=== PATIENT | male | born 1945 | race Caucasian/White ===

== ENCOUNTER 2016-08-31 15:08 | Emergency (ER) | payer MEDICARE, BC ==
[2013-02-24 21:18] VITALS: BP 124/69
== END 2016-08-31 17:07 | disposition left against medical advice (07) ==
LOC: JP.ED 15:08
DX: Z53.21 Procedure and treatment not carried out due to patient leaving prior to being seen by health care provider (principal)

== ENCOUNTER 2020-07-03 09:40 | Day surgery (SDC) | payer BC, MEDICARE ==
[2020-07-03] MEDS ORDERED: Midazolam 1 MG/ML 2 ML SDV ONE (10:21)
[2020-07-03] MEDS ORDERED: fentaNYL 100 MCG/2 ML SDV ONE (10:21)
[2020-07-03] MEDS ORDERED: Propofol 200 MG/20 ML SDV ONE (10:21)
[2020-07-03] MEDS: Sodium Chloride 0.9% 1,000 ML IV SCH (10:21)
[2020-07-03 10:42] LABS: CORONAVIRUS COVID-19 NAA NEGATIVE (NEGATIVE)
[2020-07-03 11:57] VITALS: BP 112/70; PULSE 80
--- NOTE | 2020-07-03 12:05 | OR ---
DATE OF PROCEDURE: 07/03/2020 SURGEON: Greyson Clement MD PROCEDURE: 1. EGD. 2. Removal of foreign material consistent with food. COMPLICATIONS: None. PEDIATRIC SPORTS MEDICINE SPECIALIST: None. ANESTHESIA: MAC. PREOPERATIVE DIAGNOSIS: Dysphagia. POSTOPERATIVE DIAGNOSIS: Dysphagia. RISKS: Risks, benefits, alternatives, and limitations including, but not limited to, infection, bleeding, and injury to abdominal structures such as perforation were explained to the patient and he wished to proceed. PROCEDURE IN DETAIL: The patient was placed in the left lateral decubitus position. The EGD scope was introduced and advanced to the distal aspect of the esophagus. Food material was noted. This was able to be moved into the stomach. After this, there was no mass effect. No definitive mucosal lesion. The area appeared to have a white plaque-like appearance to it. This was biopsied along with all 4 quadrants for a total of approximately 12 to 15 biopsy. The remainder of the esophagus was inspected without abnormality. The stomach was also inspected, no abnormalities were noted. Retained food was noted. The duodenum was inspected without ulceration or abnormality. The scope was then removed. The patient tolerated the procedure well. Greyson Clement MD /[id number]
== END 2020-07-03 12:00 | disposition home or self-care (01) ==
LOC: JP.SDS 09:40
PROVIDERS: ATTEND Surgery
DX: K22.10 Ulcer of esophagus without bleeding (principal); K31.89 Other diseases of stomach and duodenum; Z01.812 Encounter for preprocedural laboratory examination; Z20.822 Contact with and (suspected) exposure to COVID-19
CPT/HCPCS: 0241U; J2250; J2704; J3010; J7030